=== PATIENT | female | born 1995 | race Caucasian/White ===

== ENCOUNTER 2019-12-01 11:19 | Emergency (ER) | payer OTHER ==
[~2019-12-01] VITALS: Ht 152.4 cm; Wt 95.7 kg
[2019-12-01 12:02] VITALS: BP 127/85; Ht 152.4 cm; Wt 95.7 kg
== END 2019-12-01 12:28 | disposition home or self-care (01) ==
LOC: ED 11:19
DX: H66.92 Otitis media, unspecified, left ear (principal); J40 Bronchitis, not specified as acute or chronic